=== PATIENT | male | born 1955 | race Asian ===

== ENCOUNTER 2024-06-15 06:28 | Day surgery (SDC) | payer OTHER, SELFPAY ==
[2024-06-15] VITALS (17 sets, daily range): BP systolic 114–170; BP diastolic 75–113; BMI 25.4
[2024-06-15] MEDS: NSS 500 IV (07:04)
--- NOTE | 2024-06-15 07:23 | PTCARENOTE ---
Irish respiratory tech used for preop care.
[2024-06-15 07:30] LABS: Glucose - Point of Care 162 mg/dl (70-99)
[2024-06-15] MEDS: NSS 1000 IV (10:14)
--- NOTE | 2024-06-15 11:47 | ITS.CL.PN ---
Cloth Sander - Procedure Note
Procedure
Procedure Note:
CARDIAC CATHETERIZATION REPORT
Date of Procedure: 06/15/2024
Referring: Dr. Emiliano Ritter MD
Indication: chest pain, ACS
PROCEDURE(S)
1. left heart catheterization
2. coronary angiography
ACCESS: 6F right radial artery (closure: radial band)
CATHETERS
1. 6F JL4
2. 6F JR4
HEMODYNAMIC DATA
LV 132/3 (EDP 12) mmHg
AO 137/81 (mean 107) mmHg
CORONARY ANGIOGRAPHY
Dominance: right
LM: large vessel with a 70-80% distal stenosis.
LAD: large vessel giving rise to a large D1, moderate caliber D2, and multiple septal perforators. There is an 80-90% stenosis just after the takeoff of D1. The proximal aspect of D1 contains a 70% stenosis. There is otherwise mild disease.
LCx: large vessel giving rise to a large branching OM1 and small LPL branch. There is a 80 to 90% stenosis in the proximal circumflex just before the takeoff of OM1.
RCA: Large vessel giving rise to a large RPDA, large RPL1, and small RPL2. The proximal RCA contains a log segment of calcified moderate to severe disease up to 80-90%. There are moderate stenoses in the distal RCA. The RPDA and RPL are relatively
disease-free.
RADIATION: dose 204.3 mGy; DAP 12.7 Gy*cm2; fluoroscopy time 4.6 min
CONCLUSIONS
1. severe multivessel coronary artery disease as described
2. sormal LV filling pressure and no significant gradient on pullback
RECOMMENDATIONS
1. expectant management after cardiac catheterization via right radial approach
2. referral for coronary artery bypass grafting given multivessel disease including distal left main disease w/ high syntax score, diabetes, and relatively young age
3. continue ASA, increase statin to high intensity
4. cardiac rehab after revascularization
5. patient instructed to have a low threshold to present to the ED if any further worsening of chest pain symptoms
Copy to: Dr. Emiliano Ritter MD (administrative volunteer); Dr. Girish Alberts MD (PCP)
Signed: Aravind Garland MD, PhD
== END 2024-06-15 12:55 | disposition home or self-care (01) ==
LOC: CATH 06:28
PROVIDERS: ATTENDING PHYSICIAN Student in an Organized Health Care Education/Training Program; FAMILY PHYSICIAN Internal Medicine; OTHER PHYSICIAN Internal Medicine Cardiovascular Disease
DX: I25.10 Atherosclerotic heart disease of native coronary artery without angina pectoris (principal); R07.9 Chest pain, unspecified; E11.9 Type 2 diabetes mellitus without complications; Z79.82 Long term (current) use of aspirin; Z79.84 Long term (current) use of oral hypoglycemic drugs
CPT/HCPCS: 82962; 93458; C1894; Q9967

== ENCOUNTER → 2024-06-25 07:26 | Outpatient (REF) | payer OTHER, SELFPAY | LOC: HWRCS 07:26 | PROVIDERS: ATTENDING PHYSICIAN Student in an Organized Health Care Education/Training Program | DX: I25.10 Atherosclerotic heart disease of native coronary artery without angina pectoris (principal) | CPT/HCPCS: 93306 ==

== ENCOUNTER → 2024-07-12 12:51 | Outpatient (REF) | payer OTHER, SELFPAY | LOC: HWRAD 12:51 | PROVIDERS: ATTENDING PHYSICIAN Thoracic Surgery (Cardiothoracic Vascular Surgery); FAMILY PHYSICIAN Internal Medicine | DX: I25.10 Atherosclerotic heart disease of native coronary artery without angina pectoris (principal); Z01.818 Encounter for other preprocedural examination | CPT/HCPCS: 71250 ==

== ENCOUNTER 2024-07-21 04:34 | Inpatient (IN) | payer OTHER, SELFPAY ==
[2024-07-07 12:05] VITALS: BMI 25.4
[2024-07-07 12:43] LABS: % Basophils 0.3 % (0-2); % Eosinophils 3.2 % (0-6); % Immature Granulocytes 0.3 % (0-0.5); % Monocytes 7.6 % (1.7-9.3); % Neutrophils 66.6 % (42.2-75.2); Absolute Eosinophils 0.2 10^3/uL (0-0.7); Absolute Lymphocytes 1.4 10^3/uL (1.2-3.4); Absolute Monocytes 0.5 10^3/uL (0.1-0.6); Absolute Neutrophils 4.1 10^3/uL (1.4-6.5); Hematocrit 48.4 % (39.0-52.0); Mean Corp Hgb Conc. 33.1 g/dL (33.0-37.0); Mean Corpuscular Hgb 31.7 pg (27.0-31.0); Mean Platelet Volume 9.3 fL (7.4-10.4); Nucleated Red Blood Cells % 0 % (-); Platelet Count 173 10^3/uL (130-400); Red Blood Cell Count 5.04 10^6/uL (4.70-6.10); Red Cell Dist. Width 12.7 % (11.5-14.5); White Blood Cell Count 6.2 10^3/uL (4.8-10.8)
[2024-07-07 12:43] LABS: Urine Albumin Negative (Neg - Trace); Urine Bilirubin Negative (Negative); Urine Character Clear (Clear); Urine Color Yellow; Urine Glucose 3+ (Negative); Urine Ketone 1+ (Negative); Urine Leukocyte Negative (Negative); Urine Nitrite Negative (Negative); Urine Occult Blood Negative (Negative); Urine Specific Gravity 1.005 (<1.030); Urine Urobilinogen Negative (Neg - 1+)
[2024-07-07 12:57] LABS: INR 0.91; PT 12.7 Sec (11.4-14.6)
[2024-07-07 12:58] LABS: APTT 28.3 Sec (23.4-35.0)
[2024-07-07 13:35] LABS: ALT (SGPT) 28 U/L (0-50); AST (SGOT) 28 U/L (17-59); Albumin 4.7 g/dl (3.5-5.0); Alkaline Phosphatase 54 U/L (38-126); Blood Urea Nitrogen 14 mg/dl (9-20); Calcium 9.5 mg/dl (8.4-10.2); Carbon Dioxide 32 mmol/L (22-30); Chloride 99 mmol/L (98-107); Estimated Creatinine Clearance 76 ml/min; Glucose 102 mg/dl (70-99); Glycohemoglobin (HgbA1c) 7.7 % (4.0-5.6); Potassium 4.5 mmol/L (3.5-5.1); Sodium 139 mmol/L (135-145); Total Bilirubin 1.1 mg/dl (0.2-1.3); Total Protein 7.2 g/dl (6.3-8.2); eGFR > 60.00
--- NOTE | 2024-07-07 14:21 | CM ---
Met with and Mrs. Yo in [facility]. His spouse was the medical receptionist medical assistant. Prior to admission he resides with his spouse in a three story home with two steps to enter. He has a full flight of steps to get to bedroom/full bathroom. He has a powder room
on the first floor. Prior to admission he was independent with ambulation and adls. He does not have any DME in the home. He has a prescription plan and uses [facility]. His daughter,([id number]) from [place]. will be coming up to stay with him for a
week. His spouse works outside the home. The discharge plan is to return home with his spouse,daughter staying with him for a week and a home visit with the Transitional Care Nurse when medically stable.
We reviewed pre-op and post-op routines. We reviewed the shower instructions. He has the soap, written instructions and the Cardiothoracic Surgery Educational Booklet. We also reviewed restrictions including sternal precautions and driving
restrictions. We discussed a home visit by the Transitional Care Nurse. He is agreeable to a home visit. The plan is for CABG on Sunday, July 21, 2024.
[2024-07-21] VITALS (9 sets, daily range): BP systolic 88–143; BP diastolic 63–89; BMI 24.4
[2024-07-21] MEDS: BACTROBAN 2% OINTMENT 1 APPLIC NASAL ×2 (05:20→20:15)
[2024-07-21] MEDS: PROTONIX 40 MG PO (05:20)
[2024-07-21] MEDS: MAGNESIUM OXIDE 500 MG PO (05:20)
[2024-07-21] MEDS: LOPRESSOR 25 MG PO (05:20)
--- NOTE | 2024-07-21 05:30 | PTCARENOTE ---
pt admitted into CVICU room 2262. pt confirmed 2 showers at home. pt clipped and prepped for CVOR. pre-op meds given. pre-op education provided. all questions answered. environmental property assessor to CVOR.
dry charge process attendant Cindi, #[id number]
[2024-07-21 07:58] LABS: ACT+ - POC 101 Seconds (82-134)
[2024-07-21 08:01] LABS: Urine Albumin Negative (Neg - Trace); Urine Bilirubin Negative (Negative); Urine Character Clear (Clear); Urine Color Yellow; Urine Glucose 2+ (Negative); Urine Ketone Negative (Negative); Urine Leukocyte Negative (Negative); Urine Nitrite Negative (Negative); Urine Occult Blood 1+ (Negative); Urine Urobilinogen Negative (Neg - 1+)
[2024-07-21 08:18] LABS: Urine Squamous Cell 0-2 /LPF (Few)
[2024-07-21 08:19] LABS: Urine Bacteria Few (Negative); Urine White Cell 0-2 /HPF (0-5)
[2024-07-21 09:46] LABS: ACT+ - POC 669 Seconds (82-134)
[2024-07-21 09:48] LABS: B.E. - POC 0.6 mmol/L; Glucose - POC 166 mg/dl (70-99); HCO3 - POC 24 mmol/L (21-28); Hematocrit - POC 34 % PCV (42-52); Hemodilution- POC No; Hemoglobin Calculated - POC 11.4; Ionized Calcium - POC 1.14 mmol/L (1.15-1.33); PCO2 - POC 31 mmHg (35-48); PO2 - POC 475 mmHg (83-108); Potassium - POC 3.8 mmol/L (3.5-5.1); Sodium - POC 129 mmol/L (136-145); Specimen Type - POC Arterial; pH - POC 7.48 (7.35-7.45)
--- NOTE | 2024-07-21 10:08 | CM ---
Chart reviewed. Patient is in the OR today. Patient is independent of ADLS, lives with his in a 3 STH, 2 JOHN, 0 DME. works outside the house and their adult daughter is traveling in to stay with the patient for a week to help. Plan
is for the patient to return home with CT Transitional RN. CM to follow
[2024-07-21 10:36] LABS: ACT+ - POC 848 Seconds (82-134)
[2024-07-21 10:37] LABS: B.E. - POC 2.5 mmol/L; Glucose - POC 214 mg/dl (70-99); HCO3 - POC 27 mmol/L (21-28); Hematocrit - POC 37 % PCV (42-52); Hemodilution- POC Yes; Hemoglobin Calculated - POC 12.6; Ionized Calcium - POC 0.99 mmol/L (1.15-1.33); Lactate - POC 0.58 mmol/L (0.36-0.75); O2 Saturation %Calculated-POC 99.9 % (94-98); PCO2 - POC 42 mmHg (35-48); PO2 - POC 285 mmHg (83-108); Potassium - POC 4.6 mmol/L (3.5-5.1); Sodium - POC 137 mmol/L (136-145); Specimen Type - POC Arterial; pH - POC 7.42 (7.35-7.45)
[2024-07-21 11:08] LABS: B.E. - POC 1.6 mmol/L; Glucose - POC 218 mg/dl (70-99); HCO3 - POC 27 mmol/L (21-28); Hematocrit - POC 32 % PCV (42-52); Hemodilution- POC Yes; Ionized Calcium - POC 1.07 mmol/L (1.15-1.33); Lactate - POC 0.79 mmol/L (0.36-0.75); O2 Saturation %Calculated-POC 99.8 % (94-98); PCO2 - POC 47 mmHg (35-48); PO2 - POC 238 mmHg (83-108); Potassium - POC 3.9 mmol/L (3.5-5.1); Sodium - POC 140 mmol/L (136-145); Specimen Type - POC Arterial; pH - POC 7.37 (7.35-7.45)
[2024-07-21 11:19] LABS: ACT+ - POC 499 Seconds (82-134)
[2024-07-21 11:48] LABS: ACT+ - POC 754 Seconds (82-134)
[2024-07-21 12:21] LABS: Glucose - POC 183 mg/dl (70-99); HCO3 - POC 24 mmol/L (21-28); Hematocrit - POC 31 % PCV (42-52); Hemodilution- POC Yes; Hemoglobin Calculated - POC 10.6; O2 Saturation %Calculated-POC 99.9 % (94-98); PCO2 - POC 37 mmHg (35-48); PO2 - POC 338 mmHg (83-108); Potassium - POC 3.6 mmol/L (3.5-5.1); Sodium - POC 142 mmol/L (136-145); Specimen Type - POC Arterial; pH - POC 7.42 (7.35-7.45)
[2024-07-21 12:30] LABS: B.E. - POC -0.2 mmol/L; Glucose - POC 163 mg/dl (70-99); HCO3 - POC 24 mmol/L (21-28); Hematocrit - POC 31 % PCV (42-52); Hemodilution- POC Yes; Hemoglobin Calculated - POC 10.7; Ionized Calcium - POC 1.02 mmol/L (1.15-1.33); O2 Saturation %Calculated-POC 99.9 % (94-98); PCO2 - POC 37 mmHg (35-48); PO2 - POC 317 mmHg (83-108); Potassium - POC 3.8 mmol/L (3.5-5.1); Sodium - POC 143 mmol/L (136-145); Specimen Type - POC Arterial; pH - POC 7.42 (7.35-7.45)
[2024-07-21 12:32] LABS: ACT+ - POC 552 Seconds (82-134)
[2024-07-21] MEDS: ANCEF 10 IV ×2 (12:45→14:33)
[2024-07-21 12:55] LABS: ACT+ - POC 107 Seconds (82-134)
[2024-07-21 12:58] LABS: B.E. - POC 2.1 mmol/L; Glucose - POC 141 mg/dl (70-99); HCO3 - POC 25 mmol/L (21-28); Hematocrit - POC 31 % PCV (42-52); Hemodilution- POC Yes; Hemoglobin Calculated - POC 10.4; Ionized Calcium - POC 1.21 mmol/L (1.15-1.33); Lactate - POC 1.42 mmol/L (0.36-0.75); O2 Saturation %Calculated-POC 99.9 % (94-98); PCO2 - POC 34 mmHg (35-48); PO2 - POC 246 mmHg (83-108); Potassium - POC 3.2 mmol/L (3.5-5.1); Sodium - POC 143 mmol/L (136-145); Specimen Type - POC Arterial; pH - POC 7.48 (7.35-7.45)
--- NOTE | 2024-07-21 13:26 | W.CVOR.SURPR ---
CVOR Surgeon Immed Pre Op
-
I have examined this patient prior to performance of the scheduled procedure.
The patient's condition is unchanged from the time of the dictated/written History and
Physical and the patient is able to undergo the scheduled procedure.
--- NOTE | 2024-07-21 13:27 | W.IMMPOSTOP ---
Addendum entered and electronically signed by Troy Smith MD 07/21/24 14:21:
[id number]
Original Note:
Surgical Immed Post Op Note
-
CARDIAC SURGERY OPERATIVE NOTE:
Preoperative Dx:
MVCAD including distal LM disease
Postoperative Dx:
Same
Procedures:
1) Median sternotomy
2) Takedown of LORENE (narrow pedicle)
3) Endoscopic harvest of B/L GSV from B/L thighs
4) CABG x 4 (LORENE to LAD, GSV to D1, GSV to OM1, GSV to RPDA)
Surgeon:
Troy Smith M.D.
Assistants:
Susannah KuoA.-CElvi; event marketing assistant throughout
Susannah NamA.-C.; endoscopic harvest/prep of B/L LE GSV; closure of B/L LE GSV incisions; xrwubc-elio-waui sternotomy closure
Caleb Camejo P.A.-C.; assisted w/ prep of LLE GSV
Anesthesia:
Berta Morejon C.R.N.A. and Dominick Colin M.D.
Perfusion:
Mariely BuenrostroCElviPElvi; XC: 100min, CPB: 150min
Findings:
LORENE was a healthy conduit w/ very brisk blood flow; ELD 2.50mm
B/L thigh GSVs were healthy conduit w/ ELD 2.75-3.25mm; GSVs in B/L calf appear small and were not removed/utilized
LAD was visible on the epicardial surface at its apical segment. It's midpoint was identified under approximate 0.75cm of adipose and 1mm of myocardium. Healthy chi at this location; ELD 2.50mm
D1 was visible on the epicardial surface. Healthy chi at anastomosis; ELD 2.50mm
OM1 [upper branch] was visible on the epicardial surface. Healthy chi at anastomosis; ELD 2.00mm (anastomosis performed over 1mm shunt for technical ease)
RPDA was visible on the epicardial surface. Healthy chi at anastomosis; ELD 2.00mm
Excellent flow in all grafts on postoperative transit-time U/S flow probe assessment
Post-MIC w/ normal biventricular function w/ LVEF 55-60% w/o RWMA; no sig VHD
One of the aortic purse-string sutures broke; aortotomy reinforced w/ 2, 4-0 prolene pledgetted sutures w/ good hemastatic result
Implants:
CT x 4 (B/L pleural, inferior mediastinal, superior mediastinal)
Sternal wires x 10
Complications:
None
Transfusions:
None
Condition:
82 isoelectric sinus (0.6/0.3); 103/66; CVP 15; 100%
GTTS: levophed 3, insulin 1, precedex 0.5
Stable/guarded to CVICU
[2024-07-21 13:58] LABS: Glucose - Point of Care 127 mg/dl (70-99)
--- NOTE | 2024-07-21 14:00 | PTCARENOTE ---
received patient from cvor sedated and placed on vent by HORTICULTURE SUPERINTENDENT. Out with usual lines, CTx4 placed to -20 wall suction. CXR/EKG done bedside and labs drawn and sent. Out on levo, precedex and insulin per glycemic protocol. family here and updated at
bedside and now going home. will continue to monitor.
--- NOTE | 2024-07-21 14:13 | CON.INTV ---
Consultation
Consultation Request
Date/Time Consultation Requested: 07/21
Date/Time Consultation Performed: 07/21
Reason for Consultation: Critical care
Medical History
-
History of Present Illness:
History obtained from the chart as patient is currently intubated and sedated. 68-year-old male with history of hypertension, hyperlipidemia who is noted to have coronary disease, multivessel disease. Patient also with a history of chronic kidney
disease, diabetes. He is status post CAB x 4 07/21/2024 without complication. Intermittent Cardene requirement noted. Presently on volume-cycled ventilation, FiO2 40%. We are asked to help from critical care standpoint
Patient presented in May with 3-4 history of gradual worsening chest discomfort and shortness of breath.
.
PMH: Hypertension, hyperlipidemia, type 2 diabetes, complicated by diabetic retinopathy, GERD, colon polyps, chronic kidney disease. History of left knee surgery 1998
Past Medical History
Past Medical History: None (See above)
Past Surgical History: None (See above)
Social History
Tobacco: Non-smoker
Alcohol: None
Drug: None
Personal:
Living: With Family
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
Family History
Family History: Other (Father at age 100, mother at age 97. Brother at 74, sister at 63 from COVID. 1 son, 1 daughter healthy)
Allergies / Home Medications
Allergies
Allergy/AdvReac Type Severity Reaction Status Date / Time
Penicillins Allergy Unknown Unknown Verified 07/05/24 15:28
Home Medications
�Medication �Instructions �Recorded �Confirmed �Last Taken �Type
ascorbic acid (vitamin C) 1,000 mg 1,000 mg PO DAILY 06/15/24 07/21/24 07/14/24 History
tablet,extended release (Vitamin C
ER)
aspirin 81 mg tablet 81 mg PO DAILY 06/15/24 07/21/24 07/14/24 08:00 History
atorvastatin 80 mg tablet 80 mg PO QPM #90 tabs 06/15/24 07/21/24 07/14/24 18:00 Rx
empagliflozin 25 mg tablet 25 mg PO DAILY 06/15/24 07/21/24 07/17/24 History
(Jardiance)
glipizide 5 mg-metformin 500 mg 2 tab PO BID 06/15/24 07/21/24 07/19/24 08:00 History
tablet
lisinopril 10 mg tablet 10 mg PO DAILY 06/15/24 07/21/24 07/19/24 History
multivit,Ca,min-iron 8 mg-folic 1 tab PO DAILY 06/15/24 07/21/24 07/14/24 History
acid 200 mcg-lycopene 600 mcg
tablet (Centrum Men)
nitroglycerin 0.4 mg sublingual 0.4 mg sublingual [id number] PRN 06/15/24 07/21/24 Unknown Rx
tablet chest pain #25 tabs
omega-3 fatty acids 1,000 mg PO DAILY 06/15/24 07/21/24 07/14/24 History
omeprazole 40 mg capsule,delayed 40 mg PO DAILY 06/15/24 07/21/24 07/14/24 History
release
vitamin E 1,000 unit tablet 1 tab PO DAILY 06/15/24 07/21/24 07/14/24 History
Review of Systems
-
Unable to Obtain full review of systems at this time due to: Patient Intubation
Vitals / Labs / Diagnostic Testing
Vital Signs
Temp Pulse Resp BP Pulse Ox
97.4 F 82 14 143/86 99
07/21/24 14:00 07/21/24 14:00 07/21/24 14:00 07/21/24 05:20 07/21/24 14:00
Diagnostic Testing:
Physical Exam
-
HEENT: Normocephalic and Other (Right IJ, left upper extremity A-line, chest tube)
Cardiovascular: S1/S2, Regular Rhythm, Murmur (n) and Rub (n)
Respiratory: Wheeze (n), Rales (n), Rhonchi (n) and Non-Labored Respirations
GI: Soft, Non Distended and Non Tender
Neurology: Other (Sedated, turns head)
Skin: Good Color and Other (No rash, no edema, lower extremity bandage)
General: Comfortable
Assessment
-
68-year-old male with history of multivessel coronary disease, diabetes, hypertension, hyperlipidemia, status post coronary bypass surgery, 07/21/2024
S/p CAB x4
Multivessel disease, left main disease
Postoperative anemia
LAFB
Chronic kidney disease
Hypertension/hyperlipidemia
Diabetes
GERD
Plan/recommendations
Patient remains critically ill but stable. Was on Precedex, insulin, norepinephrine. Intermittently requiring Cardene
currently on volume-cycled ventilation, FiO2 40%, starting to wake up, turning head
Chest exam is clear
Chest x-ray unremarkable
EKG unremarkable, LAFB
MIC with normal biventricular function
Moving forward
Continue with management per CT surgery
Anticipate extubation later today
Reviewed CT chest from 07/12/2024. Few scattered calcified granulomas noted
Noncalcified plaque noted in coronary arteries
Follow blood sugars
Follow hemoglobin
We will follow with you
TCCT 31 min
[2024-07-21 14:16] LABS: Hematocrit 31.4 % (39.0-52.0); Hemoglobin 10.9 g/dL (13.0-18.0); Platelet Count 110 10^3/uL (130-400)
[2024-07-21 14:19] LABS: B.E. 0.6 mmol/L; HCO3 24.3 mmol/L (21-28); Ionized Calcium 1.15 mMOL/L (1.15-1.33); O2 Saturation % 97.9 % (94-98); PCO2 35 mmHg (35-48); PO2 146 mmHg (83-108); Potassium 3.4 mMOL/L (3.5-5.1); Sodium 139 mMOL/L (136-145); pH 7.45 (7.35-7.45)
[2024-07-21 14:25] LABS: INR 1.37; PT 17.4 Sec (11.4-14.6)
[2024-07-21 14:26] LABS: APTT 29.2 Sec (23.4-35.0)
[2024-07-21] MEDS: CALCIUM GLUCONATE 100 IV (14:30)
[2024-07-21] MEDS: NSS 500 IV (14:31)
[2024-07-21] MEDS: LR 250 ML IV (14:31)
[2024-07-21] MEDS: KCL 50 IV ×2 (14:33→15:33)
[2024-07-21] MEDS: NEURONTIN PO ×2 (14:33→14:47)
[2024-07-21] MEDS: NOVOLOG FLEXPEN SC ×2 (14:38→15:07)
[2024-07-21] MEDS: TYLENOL PO (14:39)
[2024-07-21 14:41] LABS: Blood Urea Nitrogen 15 mg/dl (9-20); Estimated Creatinine Clearance 101 ml/min; Glucose 118 mg/dl (70-99); Magnesium 2.8 mg/dl (1.6-2.3)
[2024-07-21] MEDS: PACERONE PO (14:47)
[2024-07-21] MEDS: DILAUDID 0.5 MG IV (15:04)
[2024-07-21 15:18] LABS: Glucose - Point of Care 109 mg/dl (70-99)
[2024-07-21 16:22] LABS: Glucose - Point of Care 108 mg/dl (70-99)
[2024-07-21] MEDS: DILAUDID 0.25 MG IV (16:49)
--- NOTE | 2024-07-21 18:10 | PTCARENOTE ---
placed on CPAP wean.
[2024-07-21 18:51] LABS: HCO3 24.3 mmol/L (21-28); Ionized Calcium 1.26 mMOL/L (1.15-1.33); O2 Saturation % 97.7 % (94-98); PCO2 42 mmHg (35-48); PO2 189 mmHg (83-108); Potassium 4.4 mMOL/L (3.5-5.1); pH 7.37 (7.35-7.45)
[2024-07-21 18:56] LABS: Hematocrit 34.2 % (39.0-52.0); Hemoglobin 12.2 g/dL (13.0-18.0); Platelet Count 153 10^3/uL (130-400)
--- NOTE | 2024-07-21 18:59 | PTCARENOTE ---
extubated to 6L nc with field cashier. and daughter at bedside,. tolerated.
[2024-07-21] MEDS: LIPITOR PO (19:00)
--- NOTE | 2024-07-21 19:30 | PTCARENOTE ---
assumed care of pt from previous RN. pt oriented x4, drowsy s/p CABG, awakens to verbal stimuli. R IJ cordis w/ SLIC. L radial a-line. all lines leveled, zeroed, flushed. SR on tele-monitor. pericardial friction rub on auscultation. CT x4 (R & L
pleural, mediastinal x2) to -20cm to wall suction, draining sanguineous drainage. no air leaks noted. POX 96-99% on 6 L NC. abd s/n, hypoactive BS. ewing catheter draining clear, yellow urine. all surgical sites stable, CDI. PIV intact. call bah
within reach, pt demonstrated appropriate use. see worklist for complete nursing assessment, interventions, VS, and I&Os.
[2024-07-21] MEDS: SENOKOT-S PO (20:15)
[2024-07-21] MEDS: LOW STRENGTH ASPIRIN 81 MG PO (20:15)
[2024-07-21 20:19] LABS: Glucose - Point of Care 121 mg/dl (70-99)
[2024-07-21 20:19] LABS: Glucose - Point of Care 81 mg/dl (70-99)
[2024-07-21 20:24] LABS: Glucose - Point of Care 120 mg/dl (70-99)
[2024-07-21] MEDS: ALBUMIN 5% 250 IV (20:45)
[2024-07-21] MEDS: ANCEF 5 IV (21:59)
[2024-07-21] MEDS: PACERONE 200 MG PO (22:00)
[2024-07-21 22:06] LABS: Glucose - Point of Care 96 mg/dl (70-99)
[2024-07-21] MEDS: NEURONTIN 100 MG PO (23:10)
[2024-07-21] MEDS: TYLENOL 1000 MG PO (23:10)
[2024-07-21 23:59] LABS: Glucose - Point of Care 114 mg/dl (70-99)
[2024-07-22] VITALS (25 sets, daily range): BP systolic 83–129; BP diastolic 50–68; PULSE 84; O2SAT 97–98; BMI 24.9
--- NOTE | 2024-07-22 | PTCARENOTE ---
assessment remains unchanged. VSS. no c/o pain at this time. CT drainage WNL. U/O >0.5ml/kg/h.
[2024-07-22 02:06] LABS: Glucose - Point of Care 96 mg/dl (70-99)
[2024-07-22 03:50] LABS: Platelet Count 120 10^3/uL (130-400)
[2024-07-22 03:51] LABS: Hematocrit 29.9 % (39.0-52.0); Hemoglobin 10.3 g/dL (13.0-18.0); Mean Corp Hgb Conc. 34.4 g/dL (33.0-37.0); Mean Corpuscular Volume 92.9 fL (80.0-94.0); Mean Platelet Volume 9.4 fL (7.4-10.4); Red Blood Cell Count 3.22 10^6/uL (4.70-6.10); Red Cell Dist. Width 12.6 % (11.5-14.5); White Blood Cell Count 11.3 10^3/uL (4.8-10.8)
--- NOTE | 2024-07-22 04:00 | PTCARENOTE ---
no acute changes. VSS. AM labs collected and sent.
[2024-07-22 04:07] LABS: Glucose - Point of Care 94 mg/dl (70-99)
[2024-07-22 04:18] LABS: Blood Urea Nitrogen 16 mg/dl (9-20); Calcium 7.9 mg/dl (8.4-10.2); Carbon Dioxide 26 mmol/L (22-30); Chloride 107 mmol/L (98-107); Estimated Creatinine Clearance 101 ml/min; Glucose 104 mg/dl (70-99); Magnesium 2.5 mg/dl (1.6-2.3); Potassium 4.1 mmol/L (3.5-5.1); Sodium 139 mmol/L (135-145); eGFR > 60.00
[2024-07-22] MEDS: FLEXERIL 5 MG PO (05:13)
[2024-07-22] MEDS: TYLENOL 1000 MG PO ×3 (05:13→21:41)
[2024-07-22] MEDS: ANCEF 5 IV ×2 (05:13→13:05)
[2024-07-22 06:32] LABS: Glucose - Point of Care 106 mg/dl (70-99)
--- NOTE | 2024-07-22 07:12 | W.PN.CD ---
Today's Communication / Plan
-
Consider colchicine/aspirin taper if pericarditis becomes clinically meaningful.
Routine post operative management.
Hold antihypertensives at this time.
Not ready for diuretics.
Encourage incentive spirometry.
Ambulate when appropriate
Pain/chest tube management per CTS.
Impression / Plan
-
Impression/Plan: 68 y/o male with HTN, HLD, NIDDM and multivessel CAD admitted for elective CABG.
#CAD
-Chronic, progressive.
-S/P 4V CABG (LEZAMA to LAD, SVG to D1, SVG to OM, SVG to RPDA) with Dr. Smith, 07/21/2024.
-Routine post operative care.
-Encourage incentive spirometry.
-Ambulate when appropriate.
-Continue amiodarone.
-Not ready for diuretics.
-Pain/chest tube management per CTS.
#Post operative pericarditis
-Acute.
-Diffuse ST elevation on EKG. Pericardial rub on exam. No obvious symptoms.
-Consider colchicine 0.6 mg BID x 3 months and high dose aspirin taper if pericarditis becomes clinically meaningful.
#HTN
-Chronic, stable.
-Hold anti-hypertensive medications at this time.
#HLD
-Chronic, stable.
-Continue atorvastatin 80 mg daily.
-Goal LDL < 55.
#NIDDM
-Chronic, stable.
-Management per primary team.
Subjective/Interval History:
4V CABG yesterday.
Extubated to 6LNC yesterday.
Febrile to 38.1 yesterday, afebrile since.
Weight up 1.4 kg from yesterday.
Mild hypotension this morning (83/60 mmHg).
EKG shows diffuse ST elevation. Limited chest pain.
DATA:
Cardiac Catheterization, 06/15/2025:
CORONARY ANGIOGRAPHY
Dominance: right
LM: large vessel with a 70-80% distal stenosis.
LAD: large vessel giving rise to a large D1, moderate caliber D2, and multiple septal perforators. There is an 80-90% stenosis just after the takeoff of D1. The proximal aspect of D1 contains a 70% stenosis. There is otherwise mild disease.
LCx: large vessel giving rise to a large branching OM1 and small LPL branch. There is a 80 to 90% stenosis in the proximal circumflex just before the takeoff of OM1.
RCA: Large vessel giving rise to a large RPDA, large RPL1, and small RPL2. The proximal RCA contains a log segment of calcified moderate to severe disease up to 80-90%. There are moderate stenoses in the distal RCA. The RPDA and RPL are relatively
disease-free.
Transthoracic Echocardiogram, 06/25/2024:
CONCLUSIONS
Normal left ventricular size and systolic function.
LV ejection fraction is 55-60% .
Mild concentric left ventricular hypertrophy.
No significant valvular disease.
No prior study available for comparison.
Intraprocedural MIC, 07/21/2024:
CONCLUSIONS
Normal left ventricular size and systolic function, no regional wall motion
abnormalities seen. Stage I diastolic dysfunction.
Normal right ventricular size and function.
The aorta has atheroma less than 5 mm and minimal calcifications.
Trace MR. Trace TR.
POST OPERATIVE FINDINGS
Status post CABG x 4, the left ventricle is vigorously magdiel, no regional
wall motion abnormalities seen. EF 60 to 65%.
Normal right ventricular size and function.
Trace MR. Trace TR. No aortic valve abnormalities.
Mild left pleural effusion.
Physical Exam
Vital Signs/Labs
Vital Signs
Temp Pulse Resp BP Pulse Ox
37.5 C 90 18 103/59 96
07/22/24 04:00 07/22/24 06:30 07/22/24 06:15 07/22/24 06:04 07/22/24 06:30
07/20/24 07/21/24 07/22/24
11:59 11:59 11:59
Actual Weight 66.5 kg 67.9 kg
07/22/24 03:28
07/22/24 03:28
PT 17.4 Sec (11.4-14.6) H 07/21/24 13:55
INR 1.37 07/21/24 13:55
APTT 29.2 Sec (23.4-35.0) 07/21/24 13:55
Magnesium 2.5 mg/dl (1.6-2.3) H 07/22/24 03:28
Physical Exam
Constitutional: No acute distress and Comfortable
EENT: Anicteric and Moist mucous membranes
Cardiovascular: Rhythm & rate is regular, S1S2 is normal and Rub present
Respiratory: Respiratory effort normal and Other (Decreased throughout.)
GI: Soft, Distention absent, Flat, Non tender and Normal bowel sounds
Neuro/Psych: AO x 3
Data Reviewed
-
Date of Service: July 22, 2024
Medical Decision Making: Reviewed Test Results, Independent Historian Assessment and Test Interpretation
EKG: Tracing Personally Visualized and interpreted and Report Reviewed by me
Echo: Report Reviewed by me
X-Ray/CT/US/MRI/NUC/PET: Image Personally Visualized and interpreted and Report Reviewed by me
Medical Tests (PFT, Pathology etc): Report Reviewed by me
Labs: Labs Reviewed by me
Old Records: Reviewed
--- NOTE | 2024-07-22 07:19 | W.PN.CT ---
Today's Communication / Plan
-
-pod #1
-no issues overnight
-drips: insulin
-CT output: 2 pleur 185/280; 2 meds 40/150 in 12/24 hrs
-Tm 100.5- encourage IS, chest PT
-deline
-d/c Vu
-continue insulin
-diurese
-current meds (ASA, Plavix, Lipitor, Lopressor, Amio, Protonix)
-encourage IS, OOB
Assessment / Plan
-
- mv-CAD - s/p CABG x 4 (LORENE to LAD, GSV to D1, GSV to OM1, GSV to RPDA) by Dr. Smith on 07/21/24, pod #1
- Post-MIC w/ normal biventricular function w/ LVEF 55-60% w/o RWMA; no sig VHD
- HTN/HLD
- DM II with retinopathy
- CKD, 1
- LAFB preop
- Gastritis/duodenitis
- GERD, colon polyps
- R shoulder pain
- L knee surgery 1998
- Acute postop blood loss anemia - stable
- Acute postop thrombocytopenia
- Acute postop atelectasis
- Acute postop hypovolemia with subsequent hypervolemia
- Suspected acute postop pericarditis
Discussed patient care with: Nursing and Care Team
Subjective
Procedure
- s/p CABG x 4 (LORENE to LAD, GSV to D1, GSV to OM1, GSV to RPDA) by Dr. Smith on 07/21/24
-
Date of Service: July 21, 2024
Objective Data
-
Lab Results
07/21/24 18:45
07/21/24 13:55
PT 17.4 Sec (11.4-14.6) H 07/21/24 13:55
INR 1.37 07/21/24 13:55
APTT 29.2 Sec (23.4-35.0) 07/21/24 13:55
Vital Signs
Vital Signs
Temp Pulse Resp BP Pulse Ox
99.8 F 96 12 112/72 100
07/21/24 22:00 07/21/24 22:00 07/21/24 22:00 07/21/24 22:00 07/21/24 22:[address]
CT Intake/Output/Weight
07/21/24 07/21/24 07/22/24
06:59 18:59 06:59
Intake Total 783.8 / 1114.2 330.4 / 1114.2
Output Total 980 / 1485 505 / 1485
Balance -196.2 / -370.8 -174.6 / -370.8
SaO2: 100
Physical Exam
-
General: Awake (follows commands, responds appropriately) and Oriented
Cardiovascular: Regular rate & rhythm, No Murmurs and Rub (very loud )
Respiratory: Decreased Breath Sounds
Sternum: Stable
Incision: Dry and Intact
Extremities: No Edema (DPs by Doppler b/l)
Abdomen: soft, nontender, nondistended, +decreased bowel sounds
Data Reviewed
-
Lab Results: Results Reviewed
Medications: Active Meds Reviewed
Chest X-Ray: Report Reviewed and Image Reviewed
ECG: Report Reviewed and Image Reviewed
--- NOTE | 2024-07-22 08:00 | PTCARENOTE ---
Assumed care of patient from slot shift supervisor RN. AAO x 3 sitting up in the chair. SR on monitor. Room air 97%, Using IS to 750. No cough currently. Chest tubes x 4 to - 20 cm suction. No air leak or crepitus noted. Abdomen soft and non tender.
Bowel sounds present. Due to void. Surgical sites well approximated. Pulses palpable. General anasarca appreciated. Plan for day discussed.
--- NOTE | 2024-07-22 08:06 | W.PN.INTV ---
Today's Communication / Plan
Recommendations
Incentive spirometry, pain control
Out of bed to chair
Remains on insulin drip
Airway clearance measures
Assessment
-
68-year-old male with history of multivessel coronary disease, diabetes, hypertension, hyperlipidemia, status post coronary bypass surgery, 07/21/2024
S/p CAB x4
Multivessel disease, left main disease
Postoperative anemia
LAFB
Chronic kidney disease
Hypertension/hyperlipidemia
Diabetes
GERD
Plan/recommendations
Patient appears comfortable
remains on insulin drip
Extubated without difficulty
Chest x-ray unremarkable. Chest exam clear, splinting on exam noted
EKG unremarkable, LAFB
MIC with normal biventricular function
Moving forward
Continue with management per CT surgery
Reviewed CT chest from 07/12/2024. Few scattered calcified granulomas noted
Noncalcified plaque noted in coronary arteries
Follow blood sugars. Remains on insulin drip. Diabetic ADJUNCT ART HISTORY INSTRUCTOR following
Follow hemoglobin
Pain control
Out of bed to chair, incentive spirometry
Will follow
Subjective Dataa
Subjective Data
Date of Service:
Date of Service: July 22, 2024
Subjective:
Patient examined earlier today, late entry. Patient appears to be comfortable. He is splinting with deep breathing.
Objective Data
Data Reviewed
Vital Signs / I&O / Oxygen:
Vital Signs
Temp Pulse Resp BP Pulse Ox
99.5 F 90 18 103/59 96
07/22/24 04:00 07/22/24 06:30 07/22/24 06:15 07/22/24 06:04 07/22/24 06:30
Intake and Output
07/21/24 07/22/24 07/23/24
06:59 06:59 06:59
Intake Total 1264.4 / 1264.4
Output Total 2280 / 2280
Balance -1015.6 / -1015.6
SaO2 96
Nasal Cannula flow liters per 2
minute
Physical Exam
General: Comfortable and Other (Right IJ, chest tube)
HEENT: Normocephalic and Anicteric
Cardiovascular: S1-S2, Regular Rhythm and Other (Right lower extremity bandage, left upper extremity dressing)
Respiratory: Clear, Wheeze (n), Crackles (n), Rhonchi (n) and Non-Labored Respirations
GI: Soft, Non Distended and Non Tender
Neurology: Awake, Alert and No Motor Deficits (Moves all extremities)
Skin: Good Color, Cyanosis (n) and Rash
Labs/Micro/Reports
Lab Data
07/22/24 03:28
07/22/24 03:28
Laboratory Results
07/21/24 07/21/24
13:55 18:45
PT 17.4 H
INR 1.37
APTT 29.2
pH 7.45 7.37
pCO2 35 42
pO2 146 H 189 H
HCO3 24.3 24.3
O2 Delivery Level
[2024-07-22] MEDS: NEURONTIN 100 MG PO ×3 (08:11→21:41)
[2024-07-22] MEDS: PLAVIX 75 MG PO (08:11)
[2024-07-22] MEDS: PROTONIX 40 MG PO (08:11)
[2024-07-22] MEDS: SENOKOT-S 1 TABLET PO ×2 (08:12→20:10)
[2024-07-22] MEDS: PACERONE 200 MG PO ×3 (08:12→21:41)
[2024-07-22] MEDS: NOVOLOG FLEXPEN SC ×2 (08:12→13:18)
[2024-07-22] MEDS: MAGNESIUM OXIDE 500 MG PO ×2 (08:12→20:10)
[2024-07-22] MEDS: LOW STRENGTH ASPIRIN 81 MG PO (08:12)
[2024-07-22] MEDS: LIDOCAINE 4% PATCH 1 PATCH TOPICAL (08:12)
[2024-07-22] MEDS: VITAMIN C 1000 MG PO (08:12)
[2024-07-22] MEDS: LOPRESSOR 12.5 MG PO ×2 (08:12→20:11)
[2024-07-22] MEDS: BACTROBAN 2% OINTMENT 1 APPLIC NASAL ×2 (08:13→20:10)
[2024-07-22 08:14] LABS: Glucose - Point of Care 100 mg/dl (70-99)
--- NOTE | 2024-07-22 08:31 | PN.DE.MGMTRT ---
Insulin Management
- -
07/22/2024 Diabetes management Consult
Patient admitted 07/21 to OR for CABG x 4. PMH CKD, HTN, HLD, diabetes, CAD, retinopathy, GERD. Prior to admission patient was taking glipizide/ metformin ( 5/500) 2 tabs BID and Jardiance 25 mg daily. A1C is 7.7, cr .6, eGFR > 60.
Patient is awake alert and oriented able to discuss diabetes care. at bedside and very supportive. He does have a working glucose monitor and supplies
POD 1 will continue glycemic protocol insulin infusion and assess tomorrow for readiness to transition off.
Discussed with nurse.
Will follow
Diabetes History
- -
Type of Diabetes: 2
Pre-Admission Diabetes Regimen
07/21/24 07/22/24
13:55 03:28
Creatinine 0.6 L 0.6 L
Lab Results
Hemoglobin A1c 7.7 % (4.0-5.6) H 07/07/24 12:16
Insulin Pump Settings
IP Diabetes Regimen
07/21/24 07/21/24 07/21/24
13:54 13:55 15:17
Glucose 118 H
POC Glucose 127 H 109 H
07/21/24 07/21/24 07/21/24
16:21 17:10 18:43
Glucose
POC Glucose 108 H 81 121 H
07/21/24 07/21/24 07/21/24
20:20 22:05 23:58
Glucose
POC Glucose 120 H 96 114 H
07/22/24 07/22/24 07/22/24
02:04 03:28 04:05
Glucose 104 H
POC Glucose 96 94
07/22/24 07/22/24
06:28 08:08
Glucose
POC Glucose 106 H 100 H
Patient Education
--- NOTE | 2024-07-22 08:50 | W.PN.ANS.POP ---
Anesthesia Post Operative
- Anesthesia Post Op Note
Vital Signs Stable-See Nursing Note: Yes
Airway Patent: Yes
Adequate Pain Control: Yes
Change in Mental Status: No
Current Postoperative Nausea & Vomiting: No
Anesthesia Complications: No
General Anesthetic Recall: No
Unplanned Admission: No
Post Op Hydration Adequate: Yes
- -
Pt awake and alert-resting comfortably with no anesthesia related c/o at time of post op visit..OOB to chair.
[2024-07-22 10:04] LABS: Glucose - Point of Care 119 mg/dl (70-99)
[2024-07-22] MEDS: LASIX 40 MG IV (10:04)
--- NOTE | 2024-07-22 11:29 | CM ---
Chart reviewed. Patient is independent of ADLS, lives with his in a 3 STH, 2 JOHN, 0 DME. Plan is for the patient to return home with CT Transitional RN. CM to follow
[2024-07-22 12:05] LABS: Glucose - Point of Care 108 mg/dl (70-99)
--- NOTE | 2024-07-22 13:01 | PTCARENOTE ---
Tolerating sitting up in the chair, Pain well controlled. VSS. Able to void in urinal w/o issue. Assessment otherwise unchanged from prior.
[2024-07-22] MEDS: NOVOLIN R INSULIN INFUSION 100 IV (13:05)
[2024-07-22] MEDS: NSS IV (13:18)
[2024-07-22] MEDS: LIPITOR 80 MG PO (16:16)
[2024-07-22 16:19] LABS: Glucose - Point of Care 202 mg/dl (70-99)
--- NOTE | 2024-07-22 16:44 | PTCARENOTE ---
Resting in bed, denies pain at present. Bilateral leg Johnny wraps removed. Voiding w/o issue. Assessment otherwise unchanged from prior.
[2024-07-22 17:09] LABS: Glucose - Point of Care 198 mg/dl (70-99)
[2024-07-22 17:56] LABS: Glucose - Point of Care 142 mg/dl (70-99)
[2024-07-22 18:47] LABS: Hepatitis C Antibody Negative (Negative)
[2024-07-22] MEDS: NOVOLOG FLEXPEN 4 UNITS SC (19:28)
[2024-07-22 19:34] LABS: Glucose - Point of Care 107 mg/dl (70-99)
[2024-07-22 20:09] LABS: Glucose - Point of Care 147 mg/dl (70-99)
--- NOTE | 2024-07-22 20:35 | PTCARENOTE ---
received pt from previous rn. VSS, Pt AAOx3, NSR per tele monitor HR 80-90s, +pulses, +rub, pox 96% on RA, lungs diminished, Chest tubes x 4 to - 20 cm suction. No air leak or crepitus noted. +bs, voids appropriately, all surgical sites intact,
RIJ cordis infusing KVO, PIV x1 infusing insulin per glycemic protocol. plan of care discussed and questions encouraged
[2024-07-22 21:45] LABS: Glucose - Point of Care 188 mg/dl (70-99)
[2024-07-22 23:01] LABS: Glucose - Point of Care 155 mg/dl (70-99)
--- NOTE | 2024-07-22 23:10 | PTCARENOTE ---
VSS, NSR per tele monitor HR 80s, assessment remains unchanged
[2024-07-23] VITALS (14 sets, daily range): BP systolic 94–138; BP diastolic 52–77; PULSE 80; O2SAT 98–99; BMI 24.4
[2024-07-23 01:01] LABS: Glucose - Point of Care 119 mg/dl (70-99)
[2024-07-23 02:04] LABS: Glucose - Point of Care 115 mg/dl (70-99)
[2024-07-23 03:06] LABS: Glucose - Point of Care 96 mg/dl (70-99)
--- NOTE | 2024-07-23 03:09 | PTCARENOTE ---
routine labs obtained, VSS, NSR per tele monitor HR 80s, assessment remains unchanged
[2024-07-23 03:18] LABS: Hematocrit 29.5 % (39.0-52.0); Hemoglobin 10.1 g/dL (13.0-18.0); Mean Corp Hgb Conc. 34.2 g/dL (33.0-37.0); Mean Corpuscular Hgb 32.5 pg (27.0-31.0); Mean Corpuscular Volume 94.9 fL (80.0-94.0); Mean Platelet Volume 9.5 fL (7.4-10.4); Platelet Count 123 10^3/uL (130-400); Red Blood Cell Count 3.11 10^6/uL (4.70-6.10); Red Cell Dist. Width 12.9 % (11.5-14.5); White Blood Cell Count 10.2 10^3/uL (4.8-10.8)
[2024-07-23 03:38] LABS: Blood Urea Nitrogen 17 mg/dl (9-20); Calcium 7.8 mg/dl (8.4-10.2); Carbon Dioxide 32 mmol/L (22-30); Chloride 102 mmol/L (98-107); Estimated Creatinine Clearance 87 ml/min; Glucose 95 mg/dl (70-99); Magnesium 2.5 mg/dl (1.6-2.3); Potassium 3.6 mmol/L (3.5-5.1); Sodium 137 mmol/L (135-145); eGFR > 60.00
--- NOTE | 2024-07-23 03:55 | W.PN.CT ---
Today's Communication / Plan
-
-pod #1
-no issues overnight
-CT output: 2 pleur 40/120; 2 meds 55/115 in 12/24 hrs
-Tm 99.3- encourage IS, chest PT
-consult endocrine, restart home DM meds
-current meds (ASA, Plavix, Lipitor, Lopressor, Amio, Protonix)
-encourage IS, OOB
-K and Ca repleted
Assessment / Plan
-
- mv-CAD - s/p CABG x 4 (LORENE to LAD, GSV to D1, GSV to OM1, GSV to RPDA) by Dr. Smith on 07/21/24, pod #2
- Post-MIC w/ normal biventricular function w/ LVEF 55-60% w/o RWMA; no sig VHD
- HTN/HLD
- DM II with retinopathy
- CKD, 1
- LAFB preop
- Gastritis/duodenitis
- GERD, colon polyps
- R shoulder pain
- L knee surgery 1998
- Acute postop blood loss anemia - stable
- Acute postop thrombocytopenia
- Acute postop atelectasis
- Acute postop hypovolemia with subsequent hypervolemia
- Suspected acute postop pericarditis
Subjective
Procedure
- s/p CABG x 4 (LORENE to LAD, GSV to D1, GSV to OM1, GSV to RPDA) by Dr. Smith on 07/21/24
-
Date of Service: July 23, 2024
Objective Data
-
Lab Results
07/23/24 03:05
07/23/24 03:05
PT 17.4 Sec (11.4-14.6) H 07/21/24 13:55
INR 1.37 07/21/24 13:55
APTT 29.2 Sec (23.4-35.0) 07/21/24 13:55
Vital Signs
Vital Signs
Temp Pulse Resp BP Pulse Ox
98.8 F 86 16 106/62 96
07/23/24 03:08 07/23/24 03:00 07/23/24 03:08 07/23/24 03:00 07/23/24 03:08
CT Intake/Output/Weight
07/22/24 07/22/24 07/23/24
06:59 18:59 06:59
Intake Total 480.6 / 1264.4 418 / 447.5 29.5 / 447.5
Output Total 1300 / 2280 1640 / 2935 1295 / 2935
Balance -819.4 / -1015.6 -1222 / -2487.5 -1265.5 / -2487.5
SaO2: 96
Physical Exam
-
General: AOx3
Cardiovascular: Regular rate & rhythm
Respiratory: Decreased Breath Sounds
Sternum: Stable
Incision: Dressing Intact
Extremities: No Edema
[2024-07-23 04:13] LABS: Glucose - Point of Care 95 mg/dl (70-99)
[2024-07-23] MEDS: TYLENOL 1000 MG PO ×2 (06:17→21:48)
[2024-07-23] MEDS: KCL 40 MEQ PO (06:17)
[2024-07-23] MEDS: CALCIUM GLUCONATE 100 IV (06:18)
[2024-07-23 06:23] LABS: Glucose - Point of Care 107 mg/dl (70-99)
--- NOTE | 2024-07-23 07:15 | PTCARENOTE ---
Assumed care of patient from shift supervisor RN. AAo x 3, assist x 1 oob to chair, gait steady. SR on monitor. Rub noted on exam. Room air 95%, Uses IS with encouragement. Chest tubes x 4 t0 -20 cm suction. No air leak or crepitus noted. Abdomen
soft and non tender, appetite good. Voiding w/o issue. Pulses palpable. Plan for day discussed.
--- NOTE | 2024-07-23 07:23 | PN.DE.MGMTRT ---
Insulin Management
- -
07/23/2024: Diabetes management F/U:
Patient admitted 07/21 to OR for CABG x 4. PMH CKD, HTN, HLD, diabetes, CAD, retinopathy, GERD. Prior to admission patient was taking glipizide/ metformin ( 5/500) 2 tabs BID and Jardiance 25 mg daily. States he has a working glucose monitor and
supplies. A1C is 7.7, cr .6, eGFR > 60.
Patient is awake alert and oriented, sitting up in chair, offers no complaints, able to discuss diabetes care. .
POD #2, Remains on glycemic protocol, glucose range 95 to 119, requiring 1.1 to 3.5 units of insulin/hr.
Will continue glycemic protocol insulin infusion and reassess later today for readiness to transition off.
Will add Farxiga 10mg daily, 1st dose now. 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
Will give Lantus 10 units x1, (preferably dinner time) wait 1hr then turn drip off after.
Resume his OP regimen: Glipizide 5mg BID and Metformin 1000mg BID. Will cont to follow
Dsicussed with Pt's Nurse and [facility] team.
Diabetes History
- -
Type of Diabetes: 2 requiring insulin
Pre-Admission Diabetes Regimen
07/23/24
03:05
Creatinine 0.7
Lab Results
Hemoglobin A1c 7.7 % (4.0-5.6) H 07/07/24 12:16
Insulin Pump Settings
IP Diabetes Regimen
07/22/24 07/22/24 07/22/24
08:08 10:03 12:03
Glucose
POC Glucose 100 H 119 H 108 H
07/22/24 07/22/24 07/22/24
16:15 17:08 17:55
Glucose
POC Glucose 202 H 198 H 142 H
07/22/24 07/22/24 07/22/24
19:27 20:08 21:43
Glucose
POC Glucose 107 H 147 H 188 H
07/22/24 07/23/24 07/23/24
22:59 00:59 02:03
Glucose
POC Glucose 155 H 119 H 115 H
07/23/24 07/23/24 07/23/24
03:05 04:12 06:22
Glucose 95
POC Glucose 96 95 107 H
Patient Education
--- NOTE | 2024-07-23 07:49 | W.PN.INTV ---
Today's Communication / Plan
Recommendations
Pain control, incentive spirometry
Insulin drip continues
Chest tube management per CT surgery
Patient currently on room air
Once transferred to telemetry, we will sign off. Please call with questions
Assessment
-
68-year-old male with history of multivessel coronary disease, diabetes, hypertension, hyperlipidemia, status post coronary bypass surgery, 07/21/2024
S/p CAB x4
Multivessel disease, left main disease
Postoperative anemia
LAFB
Chronic kidney disease
Hypertension/hyperlipidemia
Diabetes
GERD
Plan/recommendations
Patient appears comfortable
remains on insulin drip, plan to discontinue later today
Chest x-ray unremarkable. Chest exam clear, splinting on exam noted
EKG unremarkable, LAFB
MIC with normal biventricular function
Moving forward
Continue with management per CT surgery
Chest tube management per CT surgery
Reviewed CT chest from 07/12/2024. Few scattered calcified granulomas noted
Noncalcified plaque noted in coronary arteries
Follow blood sugars. Remains on insulin drip. 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
Follow hemoglobin
Pain control
Out of bed to chair, incentive spirometry
Once transferred to telemetry, we will sign off. Please call with questions
Subjective Dataa
Subjective Data
Date of Service:
Date of Service: July 23, 2024
Subjective:
Patient examined earlier today. Late entry. Patient is feeling well. at the bedside to act as an spanish interpreter/translator. Mild splinting noted, denies shortness of breath, significant cough, nausea, abdominal pain
Objective Data
Data Reviewed
Vital Signs / I&O / Oxygen:
Vital Signs
Temp Pulse Resp BP Pulse Ox
99.1 F 95 16 117/66 95
07/23/24 07:14 07/23/24 07:14 07/23/24 07:14 07/23/24 04:00 07/23/24 07:14
Intake and Output
07/22/24 07/23/24 07/24/24
06:59 06:59 06:59
Intake Total 1264.4 / 1264.4 458.6 / 458.6 371.1 / 371.1
Output Total 2280 / 2280 2940 / 2940
Balance -1015.6 / -1015.6 -2481.4 / -2481.4 351.1 / 351.1
SaO2 95
Nasal Cannula flow liters per 2
minute
Physical Exam
General: Comfortable
HEENT: Normocephalic and Anicteric
Cardiovascular: S1-S2, Regular Rhythm and Other (Right lower extremity bandage, left upper extremity dressing)
Respiratory: Clear, Wheeze (n), Crackles (n), Rhonchi (n) and Non-Labored Respirations
GI: Soft, Non Distended and Non Tender
Neurology: Awake, Alert and No Motor Deficits (Moves all extremities)
Skin: Good Color, Cyanosis (n) and Rash
Labs/Micro/Reports
Lab Data
07/23/24 03:05
07/23/24 03:05
[2024-07-23 08:20] LABS: Glucose - Point of Care 274 mg/dl (70-99)
[2024-07-23] MEDS: PLAVIX 75 MG PO (08:20)
[2024-07-23] MEDS: VITAMIN C 1000 MG PO (08:20)
[2024-07-23] MEDS: PROTONIX 40 MG PO (08:20)
[2024-07-23] MEDS: NEURONTIN 100 MG PO ×3 (08:20→21:48)
[2024-07-23] MEDS: FARXIGA 10 MG PO (08:20)
[2024-07-23] MEDS: MAGNESIUM OXIDE 500 MG PO ×2 (08:20→19:57)
[2024-07-23] MEDS: NOVOLOG FLEXPEN 4 UNITS SC ×2 (08:21→14:38)
[2024-07-23] MEDS: LOPRESSOR 12.5 MG PO ×2 (08:21→19:57)
[2024-07-23] MEDS: BACTROBAN 2% OINTMENT 1 APPLIC NASAL ×2 (08:21→19:57)
[2024-07-23] MEDS: SENOKOT-S 1 TABLET PO (08:21)
[2024-07-23] MEDS: PACERONE 200 MG PO ×2 (08:21→15:47)
[2024-07-23] MEDS: LOW STRENGTH ASPIRIN 81 MG PO (08:21)
[2024-07-23] MEDS: LIDOCAINE 4% PATCH TOPICAL (08:22)
[2024-07-23 09:31] LABS: Glucose - Point of Care 339 mg/dl (70-99)
[2024-07-23 10:47] LABS: Glucose - Point of Care 157 mg/dl (70-99)
--- NOTE | 2024-07-23 10:52 | PTCARENOTE ---
Chest tubes x 4 removed per MD order. Pt tolerated w/o issue. RT IJ cordis removed after. Manual pressure applied x 5 minutes, hemostasis achieved. Resting in bed after.
--- NOTE | 2024-07-23 11:14 | CM ---
Chart reviewed. Patient was lying in bed, at bedside. Patient is independent of ADLS, lives with his in a [address], 2 JOHN, 0 DME. Plan is for the patient to return home with CT Transitional RN. CM to follow
--- NOTE | 2024-07-23 11:27 | W.PN.CD ---
Today's Communication / Plan
-
Repeat EKG this morning.
Otherwise routine post operative management.
Incentive spirometry.
Ambulation.
Impression / Plan
-
Impression/Plan: 68 y/o male with HTN, HLD, NIDDM and multivessel CAD admitted for elective CABG.
#CAD
-Chronic, progressive.
-S/P 4V CABG (LEZAMA to LAD, SVG to D1, SVG to OM, SVG to RPDA) with Dr. Smith, 07/21/2024.
-Routine post operative care.
-Encourage incentive spirometry.
-Ambulate when appropriate.
-Continue amiodarone.
#Post operative pericarditis
-Acute.
-Diffuse ST elevation on EKG. Pericardial rub on exam, improved from yesterday. No obvious symptoms.
-Recheck EKG this morning.
-Consider colchicine 0.6 mg BID x 3 months and high dose aspirin taper if pericarditis becomes clinically meaningful.
#HTN
-Chronic, stable.
-Hold anti-hypertensive medications at this time.
#HLD
-Chronic, stable.
-Continue atorvastatin 80 mg daily.
-Goal LDL < 55.
#NIDDM
-Chronic, stable.
-Management per primary team.
Subjective/Interval History:
Chest tubes removed.
Diabetic mangement on board. Dapagliflozin and insulin glargine starting.
Furosemide 40 mg IV x1 given yesterday.
Weight down 1.5 kg.
Feels well.
DATA:
Cardiac Catheterization, 06/15/2025:
CORONARY ANGIOGRAPHY
Dominance: right
LM: large vessel with a 70-80% distal stenosis.
LAD: large vessel giving rise to a large D1, moderate caliber D2, and multiple septal perforators. There is an 80-90% stenosis just after the takeoff of D1. The proximal aspect of D1 contains a 70% stenosis. There is otherwise mild disease.
LCx: large vessel giving rise to a large branching OM1 and small LPL branch. There is a 80 to 90% stenosis in the proximal circumflex just before the takeoff of OM1.
RCA: Large vessel giving rise to a large RPDA, large RPL1, and small RPL2. The proximal RCA contains a log segment of calcified moderate to severe disease up to 80-90%. There are moderate stenoses in the distal RCA. The RPDA and RPL are relatively
disease-free.
Transthoracic Echocardiogram, 06/25/2024:
CONCLUSIONS
Normal left ventricular size and systolic function.
LV ejection fraction is 55-60% .
Mild concentric left ventricular hypertrophy.
No significant valvular disease.
No prior study available for comparison.
Intraprocedural MIC, 07/21/2024:
CONCLUSIONS
Normal left ventricular size and systolic function, no regional wall motion
abnormalities seen. Stage I diastolic dysfunction.
Normal right ventricular size and function.
The aorta has atheroma less than 5 mm and minimal calcifications.
Trace MR. Trace TR.
POST OPERATIVE FINDINGS
Status post CABG x 4, the left ventricle is vigorously magdiel, no regional
wall motion abnormalities seen. EF 60 to 65%.
Normal right ventricular size and function.
Trace MR. Trace TR. No aortic valve abnormalities.
Mild left pleural effusion.
Physical Exam
Vital Signs/Labs
Vital Signs
Temp Pulse Resp BP Pulse Ox
37.3 C 91 16 131/61 99
07/23/24 07:14 07/23/24 08:17 07/23/24 07:14 07/23/24 08:21 07/23/24 10:40
07/21/24 07/22/24 07/23/24
11:59 11:59 11:59
Actual Weight 66.5 kg 67.9 kg 66.4 kg
07/23/24 03:05
07/23/24 03:05
PT 17.4 Sec (11.4-14.6) H 07/21/24 13:55
INR 1.37 07/21/24 13:55
APTT 29.2 Sec (23.4-35.0) 07/21/24 13:55
Magnesium 2.5 mg/dl (1.6-2.3) H 07/23/24 03:05
Physical Exam
Constitutional: No acute distress and Comfortable
EENT: Anicteric and Moist mucous membranes
Cardiovascular: Rhythm & rate is regular, Pedal edema is absent, JVD pressure is normal, S1S2 is normal and Rub present
Respiratory: Respiratory effort normal, Lungs clear to auscul., Wheeze Absent, Crackles Absent and Rhonchi Absent
GI: Soft, Distention absent, Flat, Non tender and Normal bowel sounds
Neuro/Psych: AO x 3
Data Reviewed
-
Date of Service: July 23, 2024
Medical Decision Making: Reviewed Test Results, Independent Historian Assessment, Test Interpretation and Review of Case with other Provider
EKG: Tracing Personally Visualized and interpreted and Report Reviewed by me
X-Ray/CT/US/MRI/NUC/PET: Image Personally Visualized and interpreted and Report Reviewed by me
Labs: Labs Reviewed by me
Old Records: Reviewed
[2024-07-23 13:01] LABS: Glucose - Point of Care 140 mg/dl (70-99)
[2024-07-23] MEDS: NOVOLOG FLEXPEN SC ×2 (13:02→15:48)
[2024-07-23] MEDS: NSS IV (13:03)
[2024-07-23 14:36] LABS: Glucose - Point of Care 108 mg/dl (70-99)
[2024-07-23] MEDS: TYLENOL PO (14:38)
--- NOTE | 2024-07-23 16:06 | PTCARENOTE ---
Ambulating in hallway w/o issue. VSS. Pt gave self partial bath in bathroom, new gown and socks provided. Assessment unchanged from prior.
[2024-07-23] MEDS: LANTUS 0.1 UNITS SC (16:21)
[2024-07-23] MEDS: GLUCOTROL 5 MG PO (16:58)
[2024-07-23] MEDS: GLUCOPHAGE 1000 MG PO (16:58)
[2024-07-23] MEDS: LIPITOR 80 MG PO (16:58)
[2024-07-23] MEDS: NOVOLOG FLEXPEN-LOW RESISTANCE SC (16:59)
[2024-07-23] MEDS: SENOKOT-S PO (19:59)
--- NOTE | 2024-07-23 20:10 | PTCARENOTE ---
received pt from previous rn. VSS, Pt AAOx3, ambulating NSR per tele monitor HR 80-90s, +pulses, , pox 96% on RA, lungs diminished, +bs, voids appropriately, all surgical sites intact, , PIV x1 intact, plan of care discussed and questions
encouraged.
[2024-07-23] MEDS: PACERONE 400 MG PO (21:48)
[2024-07-23 21:51] LABS: Glucose - Point of Care 167 mg/dl (70-99)
--- NOTE | 2024-07-23 23:10 | PTCARENOTE ---
Pt resting comfortably, VSS, NSR per tele monitor, assessment remains unchanged
[2024-07-24] VITALS: BP 111/62
--- NOTE | 2024-07-24 00:26 | W.PN.CT ---
Today's Communication / Plan
-
Plan:
-No major issues overnight. Hemodynamically and neurologically intact
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
-Will transition off today. Vianey added
-Telemetry phase
-Cordis d/c'd yesterday
-F/U 2-view cxr
-Noted to be a bit tachycardic with ambulation, will increase Lopressor from 12.5 mg BID to 25 mg BID
-Cont. current meds (ASA, Plavix, Lipitor, Lopressor, Amio, Protonix)
-Encourage use of IS
-OOB into chair/Ambulate
-No temporary PW to cut
-Likely home today
Assessment / Plan
-
- mv-CAD - s/p CABG x 4 (LORENE to LAD, GSV to D1, GSV to OM1, GSV to RPDA) by Dr. Smith on 07/21/24, pod #3
- Post-MIC w/ normal biventricular function w/ LVEF 55-60% w/o RWMA; no sig VHD
- HTN/HLD
- DM II with retinopathy
- CKD, 1
- LAFB preop
- Gastritis/duodenitis
- GERD, colon polyps
- R shoulder pain
- L knee surgery 1998
- Acute postop blood loss anemia - stable
- Acute postop thrombocytopenia
- Acute postop atelectasis
- Acute postop hypovolemia with subsequent hypervolemia
- Suspected acute postop pericarditis
Discussed patient care with: Cardiology, Nursing, Respiratory Therapy, Pharmacy and Care Team
Subjective
Procedure
- s/p CABG x 4 (LORENE to LAD, GSV to D1, GSV to OM1, GSV to RPDA) by Dr. Smith on 07/21/24
-
Date of Service: July 24, 2024
Pt offers no complaints, feels well. Ambulating halls without difficulty
Objective Data
-
PT 17.4 Sec (11.4-14.6) H 07/21/24 13:55
INR 1.37 07/21/24 13:55
APTT 29.2 Sec (23.4-35.0) 07/21/24 13:55
Vital Signs
Vital Signs
Temp Pulse Resp BP Pulse Ox
98.6 F 89 16 107/69 95
07/23/24 23:09 07/23/24 23:00 07/23/24 23:09 07/23/24 22:59 07/23/24 23:09
CT Intake/Output/Weight
07/23/24 07/23/24 07/24/24
06:59 18:59 06:59
Intake Total 40.6 / 458.6 782.1 / 882.1 100 / 882.1
Output Total 1300 / 2940 1570 / 1570
Balance -1259.4 / -2481.4 -787.9 / -687.9 100 / -687.9
SaO2: 95 (RA)
Physical Exam
-
General: Awake, Oriented and AOx3
Cardiovascular: Regular rate & rhythm, No Murmurs, No Rub and No Gallop
Respiratory: Decreased Breath Sounds (at bases, otherwise clear)
Sternum: Stable
Incision: Clean, Dry, Intact and Dressing Intact
Extremities: No Edema
Data Reviewed
-
Lab Results: Results Reviewed
Medications: Active Meds Reviewed
Chest X-Ray: Report Reviewed and Image Reviewed
ECG: Report Reviewed and Image Reviewed
[2024-07-24 02:54] VITALS: BP 133/77
[2024-07-24 03:04] LABS: Ionized Calcium 1.19 mMOL/L (1.15-1.33)
--- NOTE | 2024-07-24 03:07 | PTCARENOTE ---
routine labs obtained, VSS, NSR per tele monitor, pt ambulating to the bathroom no issues, assessment remains unchanged
[2024-07-24 03:37] LABS: Hematocrit 34.5 % (39.0-52.0); Hemoglobin 11.7 g/dL (13.0-18.0); Mean Corp Hgb Conc. 33.9 g/dL (33.0-37.0); Mean Corpuscular Hgb 32.2 pg (27.0-31.0); Mean Platelet Volume 9.5 fL (7.4-10.4); Platelet Count 152 10^3/uL (130-400); Red Blood Cell Count 3.63 10^6/uL (4.70-6.10); Red Cell Dist. Width 12.7 % (11.5-14.5)
[2024-07-24 03:57] LABS: Blood Urea Nitrogen 17 mg/dl (9-20); Carbon Dioxide 27 mmol/L (22-30); Chloride 99 mmol/L (98-107); Estimated Creatinine Clearance 76 ml/min; Glucose 178 mg/dl (70-99); Magnesium 2.4 mg/dl (1.6-2.3); Potassium 4.6 mmol/L (3.5-5.1); Sodium 135 mmol/L (135-145); eGFR > 60.00
[2024-07-24] MEDS: CALCIUM GLUCONATE 100 IV (04:56)
[2024-07-24] MEDS: TYLENOL 1000 MG PO (04:58)
[2024-07-24 05:14] VITALS: BMI 24.4
--- NOTE | 2024-07-24 07:07 | W.PN.INTV ---
Today's Communication / Plan
Recommendations
Pain control, incentive spirometry
Ambulating well
We will sign off. Please call with questions
Assessment
-
68-year-old male with history of multivessel coronary disease, diabetes, hypertension, hyperlipidemia, status post coronary bypass surgery, 07/21/2024
S/p CAB x4
Multivessel disease, left main disease
Postoperative anemia
LAFB
Chronic kidney disease
Hypertension/hyperlipidemia
Diabetes
GERD
Plan/recommendations
Patient appears comfortable
Off insulin drip
Chest x-ray today unremarkable. Chest tubes removed
Ambulating without difficulty
Less splinting on exam
EKG unremarkable, LAFB
MIC with normal biventricular function
Moving forward
Continue with management per CT surgery
Reviewed CT chest from 07/12/2024. Few scattered calcified granulomas noted
Noncalcified plaque noted in coronary arteries
Pain control
Out of bed to chair, incentive spirometry
Patient transferred to telemetry. We will sign off. Please call with questions
Subjective Dataa
Subjective Data
Date of Service:
Date of Service: July 24, 2024
Subjective:
Observed patient ambulating throughout the bates. He is without complaints.
Objective Data
Data Reviewed
Vital Signs / I&O / Oxygen:
Vital Signs
Temp Pulse Resp BP Pulse Ox
98.3 F 85 16 133/77 95
07/24/24 03:02 07/24/24 03:00 07/24/24 03:02 07/24/24 02:54 07/24/24 06:05
Intake and Output
07/23/24 07/24/24 07/25/24
06:59 06:59 06:59
Intake Total 458.6 / 458.6 882.1 / 882.1
Output Total 2940 / 2940 1570 / 1570
Balance -2481.4 / -2481.4 -687.9 / -687.9
SaO2 95
Nasal Cannula flow liters per 2
minute
Physical Exam
General: Comfortable
HEENT: Normocephalic and Anicteric
Cardiovascular: S1-S2 and Regular Rhythm
Respiratory: Clear, Wheeze (n), Crackles (n), Rhonchi (n) and Non-Labored Respirations
GI: Soft, Non Distended and Non Tender
Neurology: Awake, Alert and No Motor Deficits (Moves all extremities)
Skin: Good Color, Cyanosis (n) and Rash
Labs/Micro/Reports
Lab Data
07/24/24 02:58
07/24/24 02:58
--- NOTE | 2024-07-24 07:17 | W.PN.CD ---
Today's Communication / Plan
-
EKG.
Restart lisinopril 5 mg daily.
Ambulate.
Incentive spirometry.
Discharge planning.
Impression / Plan
-
Impression/Plan: 68 y/o male with HTN, HLD, NIDDM and multivessel CAD admitted for elective CABG.
#CAD
-Chronic, progressive.
-S/P 4V CABG (LEZAMA to LAD, SVG to D1, SVG to OM, SVG to RPDA) with Dr. Smith, 07/21/2024.
-Routine post operative care.
-Encourage incentive spirometry.
-Ambulate.
-Continue amiodarone, metoprolol, atorvastatin.
#Post operative pericarditis
-Acute.
-Diffuse ST elevation on EKG. Pericardial rub on exam, improved from yesterday. No obvious symptoms.
-Recheck EKG this morning.
-Consider colchicine 0.6 mg BID x 3 months and high dose aspirin taper if pericarditis becomes clinically meaningful.
#HTN
-Chronic, stable.
-Continue metoprolol.
-Restart lisinopril at lower dose (5 mg).
#HLD
-Chronic, stable.
-Continue atorvastatin 80 mg daily.
-Goal LDL < 55.
#NIDDM
-Chronic, stable.
-Continue dapagliflozin 10 mg daily while hospitalized.
-Resume empagliflozin 25 mg daily at discharge.
Subjective/Interval History:
Weight stable.
SaO2 95% on RA.
Feels well.
DATA:
Cardiac Catheterization, 06/15/2025:
CORONARY ANGIOGRAPHY
Dominance: right
LM: large vessel with a 70-80% distal stenosis.
LAD: large vessel giving rise to a large D1, moderate caliber D2, and multiple septal perforators. There is an 80-90% stenosis just after the takeoff of D1. The proximal aspect of D1 contains a 70% stenosis. There is otherwise mild disease.
LCx: large vessel giving rise to a large branching OM1 and small LPL branch. There is a 80 to 90% stenosis in the proximal circumflex just before the takeoff of OM1.
RCA: Large vessel giving rise to a large RPDA, large RPL1, and small RPL2. The proximal RCA contains a log segment of calcified moderate to severe disease up to 80-90%. There are moderate stenoses in the distal RCA. The RPDA and RPL are relatively
disease-free.
Transthoracic Echocardiogram, 06/25/2024:
CONCLUSIONS
Normal left ventricular size and systolic function.
LV ejection fraction is 55-60% .
Mild concentric left ventricular hypertrophy.
No significant valvular disease.
No prior study available for comparison.
Intraprocedural MIC, 07/21/2024:
CONCLUSIONS
Normal left ventricular size and systolic function, no regional wall motion
abnormalities seen. Stage I diastolic dysfunction.
Normal right ventricular size and function.
The aorta has atheroma less than 5 mm and minimal calcifications.
Trace MR. Trace TR.
POST OPERATIVE FINDINGS
Status post CABG x 4, the left ventricle is vigorously magdiel, no regional
wall motion abnormalities seen. EF 60 to 65%.
Normal right ventricular size and function.
Trace MR. Trace TR. No aortic valve abnormalities.
Mild left pleural effusion.
Physical Exam
Vital Signs/Labs
Vital Signs
Temp Pulse Resp BP Pulse Ox
36.8 C 85 16 133/77 95
07/24/24 03:02 07/24/24 03:00 07/24/24 03:02 07/24/24 02:54 07/24/24 06:05
07/22/24 07/23/24 07/24/24
11:59 11:59 11:59
Actual Weight 67.9 kg 66.4 kg 66.6 kg
07/24/24 02:58
07/24/24 02:58
PT 17.4 Sec (11.4-14.6) H 07/21/24 13:55
INR 1.37 07/21/24 13:55
APTT 29.2 Sec (23.4-35.0) 07/21/24 13:55
Magnesium 2.4 mg/dl (1.6-2.3) H 07/24/24 02:58
Physical Exam
Constitutional: No acute distress and Comfortable
EENT: Anicteric and Moist mucous membranes
Cardiovascular: Rhythm & rate is regular, Pedal edema is absent, JVD pressure is normal, S1S2 is normal and Rub present (Mild, improved from yesterday.)
Respiratory: Respiratory effort normal, Lungs clear to auscul., Wheeze Absent, Crackles Absent and Rhonchi Absent
GI: Soft, Distention absent, Flat, Non tender and Normal bowel sounds
Neuro/Psych: AO x 3
Data Reviewed
-
Date of Service: July 24, 2024
Medical Decision Making: Reviewed Test Results, Independent Historian Assessment and Test Interpretation
EKG: Tracing Personally Visualized and interpreted and Report Reviewed by me
Echo: Report Reviewed by me
X-Ray/CT/US/MRI/NUC/PET: Image Personally Visualized and interpreted and Report Reviewed by me
Medical Tests (PFT, Pathology etc): Report Reviewed by me
Labs: Labs Reviewed by me
Old Records: Reviewed
[2024-07-24 08:00] VITALS: BP 139/81
[2024-07-24 08:39] LABS: Glucose - Point of Care 155 mg/dl (70-99)
[2024-07-24 08:40] VITALS: BP 139/81
[2024-07-24] MEDS: VITAMIN C 1000 MG PO (08:48)
[2024-07-24] MEDS: FARXIGA 10 MG PO (08:48)
[2024-07-24] MEDS: SENOKOT-S 1 TABLET PO (08:48)
[2024-07-24] MEDS: PROTONIX 40 MG PO (08:48)
[2024-07-24] MEDS: BACTROBAN 2% OINTMENT 1 APPLIC NASAL (08:48)
[2024-07-24] MEDS: GLUCOTROL 5 MG PO (08:49)
[2024-07-24] MEDS: LOPRESSOR 25 MG PO (08:49)
[2024-07-24] MEDS: GLUCOPHAGE 1000 MG PO (08:49)
[2024-07-24] MEDS: PACERONE 200 MG PO (08:49)
[2024-07-24] MEDS: NEURONTIN 100 MG PO (08:49)
[2024-07-24] MEDS: LOW STRENGTH ASPIRIN 81 MG PO (08:49)
[2024-07-24] MEDS: PLAVIX 75 MG PO (08:49)
[2024-07-24] MEDS: LIDOCAINE 4% PATCH 1 PATCH TOPICAL (08:52)
[2024-07-24] MEDS: NOVOLOG FLEXPEN-LOW RESISTANCE 1 UNITS SC (08:53)
--- NOTE | 2024-07-24 09:29 | W.DCSUMMARY ---
Discharge Summary
Discharge Data
Date of Admission: 07/21/24
Date of Discharge: 07/24/24
-
Pending Results: No
Hospital Course
Primary care physician: Girish Alberts
Outpatient computer analyst: Emiliano Ritter
Inpatient consultants: [facility] Cardiology, diabetes nurse practitioner, pulmonary regional education coordinator
Procedures:
1. CABG
Primary Diagnosis:
1. Coronary artery disease
Secondary Diagnoses:
1. Hypertension
2. Hyperlipidemia
3. Type 2 diabetes (A1c 7.7)
4. Chronic kidney disease I
5. GERD
6. History of duodenitis
7. LAFB preop, resolved post-op
8. Acute postop blood loss anemia
9. Acute postop thrombocytopenia
10. Acute postop hypovolemia
11. acute postop pericarditis
HPI: 68-year-old male was electively admitted on 07/21/2024 for CABG due to multivessel coronary disease
Hospital course: Patient underwent CABG x 4 (LEZAMA to LAD, SVG to OM, SVG to D1, SVG to RPDA) by Dr. Troy Smith. Postprocedure MIC reported an EF of 60-65%. Patient received no intraoperative blood products and returned to CVICU on Levophed,
Precedex, and insulin. Patient weaned off Levophed overnight and was extubated on postoperative day #0. Standard aspirin and Plavix were initiated. Chest tubes, and right IJ were removed on postoperative day #2. Patient had no epicardial wires.
Patient was seen by the diabetes nurse practitioner team and transitioned to glipizide 5 mg twice daily and metformin at higher dose of 1000 mg twice daily. Jardiance was resumed. Toprol dose was increased to 25 mg twice daily to achieve heart
rate in the 70s. Lisinopril was resumed at lower dose for discharge (5 mg daily) labs are stable on day of discharge with hemoglobin 11.7 and creatinine 0.08. Patient ambulated with cardiac rehab in halls and completed steps without difficulty. A
two-view predischarge chest x-ray reported clear lung fiels without pneumothorax. Patient will be seen by the transitional nurse per standard protocol after discharge.
Home medication changes:
Stop:
Glipizide�metformin 5-500mg (2 tabs BID) as changing to glipizide 5 mg twice daily and metformin 1000 mg twice daily
Omeprazole -changing to Protonix while on Plavix
Vitamin D
Lisinopril- decreased dose from 10 mg to 5 mg daily
Discharge Plan
-
Patient Disposition: Home (Routine Discharge)
Discharge Diagnosis/Procedures: CAD s/p CABG
Condition: Good
Diet: Low Cholesterol, Low Sodium and Diabetic, Carb Controlled
Activity: No strenuous activity
Driving Restrictions: Not until seen by your Dr
Bathing Restrictions: OK to Shower
Other Services: Cardiac Rehab
Specialty Instructions: Weigh Daily- Call MD for wt gain/loss 3 lbs overnight/5 lbs in 1 week
Referrals:
CT Transitional Care Nurse [Outside]
[facility]. Cardiac Rehab [Outside] - 08/25/24 9:00 am
(Cardiac Rehab Orientation appointment is on August 25 at 9am.
The Cardiac Rehab gym is located on the first floor of the [facility].)
Girish Alberts MD [Family Provider] -
Emiliano Ritter MD [Active] - 09/07/24 2:40 pm
Troy Smith MD [Active] - 08/24/24 2:30 pm
Prescriptions:
New
acetaminophen 325 mg Tablet
650 mg PO Q4HPRN PRN (Reason: mild pain,headache,temp >101F ) Qty: 0 0RF
metformin 1,000 mg Tablet
1,000 mg PO BID@0800,1700 Qty: 60 1RF
clopidogrel 75 mg Tablet
75 mg PO DAILY Qty: 30 1RF
pantoprazole 40 mg Tablet,Delayed Release (Dr/Ec)
40 mg PO DAILY Qty: 30 1RF
glipizide 5 mg Tablet
5 mg PO BID@0800,1700 Qty: 60 1RF
metoprolol succinate [Toprol XL] 50 mg tablet extended release 24 hr
50 mg PO DAILY Qty: 30 1RF
oxycodone 5 mg Tablet
5 mg PO Q4HPRN PRN (Reason: severe pain) Qty: 10 0RF
lisinopril 5 mg tablet
5 mg PO DAILY Qty: 30 1RF
Continued
aspirin 81 mg Tablet
81 mg PO DAILY
omega-3 fatty acids Capsule
1,000 mg PO DAILY
Centrum Men 8 mg iron- 200 mcg-600 mcg Tablet
1 tab PO DAILY
Jardiance 25 mg Tablet
25 mg PO DAILY
atorvastatin 80 mg tablet
80 mg PO QPM Qty: 90 5RF
Vitamin C 1,000 mg Tablet Extended Release
1,000 mg PO DAILY Qty: 0 0RF
Discontinued
omeprazole 40 mg Capsule,Delayed Release(Dr/Ec)
40 mg PO DAILY
lisinopril 10 mg Tablet
10 mg PO DAILY
vitamin E 1,000 unit Tablet
1 tab PO DAILY
glipizide-metformin 5-500 mg Tablet
2 tab PO BID
nitroglycerin 0.4 mg tablet, sublingual
0.4 mg sublingual [id number] PRN (Reason: chest pain) Qty: 25 5RF
Discharge Orders:
Discharge Patient (As Directed); Ordered 07/24/24
Ordered By: Valeria Leon
Care Plan Goals
Care Plan Goals:
Problem: Readiness for enhanced knowledge related to diagnosis and treatment plan
Goal: Understand your diagnosis and treatment plan needs, including medications if applicable.
Instructions: Know your diagnosis, underlying causes and treatment plan options, including medications if applicable. Consult with your health care team to learn about your diagnosis and treatment plan, including medications if applicable.
Discharge Date and Time
Print Language: NEPALI
--- NOTE | 2024-07-24 09:30 | PTCARENOTE ---
Patient care assumed from nightshift RN. Patient fully alert and oriented. Denies pain. Vital signs stable. NSR. Lungs clear, slightly diminished in bilateral bases. Room air. No shortness of breath. Pulses palpable. Minimal generalized edema.
Ambulates independently. GI/ benign, tolerates meals. Glucose controlled with PO meds and sliding scale insulin. 2 view chest xray complete. Surgical dressings all clean, dry, intact.
[2024-07-24] MEDS: NSS IV (10:05)
[2024-07-24 10:11] VITALS: BP 141/78
[2024-07-24] MEDS: ZESTRIL 10 MG PO (10:18)
[2024-07-24 11:44] LABS: Glucose - Point of Care 225 mg/dl (70-99)
[2024-07-24] MEDS: NOVOLOG FLEXPEN-LOW RESISTANCE 2 UNITS SC (11:44)
[2024-07-24] MEDS: TYLENOL 650 MG PO (11:47)
--- NOTE | 2024-07-24 12:33 | PTCARENOTE ---
Patient read discharge instructions with daughter bedside. Patient showered. PIV removed. Brought down to vehicle by RN via wheelchair. Discharged at 1224.
== END 2024-07-24 12:24 | disposition home or self-care (01) | DRG 236 ==
LOC: CVICU 04:34
PROVIDERS: Anesthesiology; Clinical Nurse Specialist Acute Care; ADMITTING PHYSICIAN Thoracic Surgery (Cardiothoracic Vascular Surgery); CONSULT PHYSICIAN Internal Medicine Critical Care Medicine; OTHER PHYSICIAN Internal Medicine Cardiovascular Disease
PROC: 5A1221Z Performance of Cardiac Output, Continuous (ICD-10-PCS; 2024-07-21)
PROC: 02100ZC Bypass Coronary Artery, One Artery from Thoracic Artery, Open Approach (ICD-10-PCS; 2024-07-21)
PROC: 06BP4ZZ Excision of Right Saphenous Vein, Percutaneous Endoscopic Approach (ICD-10-PCS; 2024-07-21)
PROC: 021209W Bypass Coronary Artery, Three Arteries from Aorta with Autologous Venous Tissue, Open Approach (ICD-10-PCS; 2024-07-21)
PROC: 06BQ4ZZ Excision of Left Saphenous Vein, Percutaneous Endoscopic Approach (ICD-10-PCS; 2024-07-21)
PROC: B24BZZ4 Ultrasonography of Heart with Aorta, Transesophageal (ICD-10-PCS; 2024-07-21)
DX: I25.10 Atherosclerotic heart disease of native coronary artery without angina pectoris (principal); D62 Acute posthemorrhagic anemia; I30.8 Other forms of acute pericarditis; J98.11 Atelectasis; D69.59 Other secondary thrombocytopenia; R00.0 Tachycardia, unspecified; E87.70 Fluid overload, unspecified; E86.1 Hypovolemia; I12.9 Hypertensive chronic kidney disease with stage 1 through stage 4 chronic kidney disease, or unspecified chronic kidney disease; N18.1 Chronic kidney disease, stage 1; E78.5 Hyperlipidemia, unspecified; E11.22 Type 2 diabetes mellitus with diabetic chronic kidney disease; E11.319 Type 2 diabetes mellitus with unspecified diabetic retinopathy without macular edema; K21.9 Gastro-esophageal reflux disease without esophagitis; I44.4 Left anterior fascicular block; Z79.82 Long term (current) use of aspirin; Z79.84 Long term (current) use of oral hypoglycemic drugs
CPT/HCPCS: 36415; 71045; 71046; 80048; 80053; 81003; 81015; 82248; 82330; 82565; 82805; 82947; 82962; 83036; 83735; 84132; 84302; 84520; 85014; 85018; 85025; 85027; 85049; 85610; 85730; 86803; 86850; 86900; 86901; 86920; 87070; 93005; 93312; 93320; 93325; 93880; 94002; P9045

== ENCOUNTER 2024-08-25 09:07 | Outpatient (RCR) | payer OTHER, SELFPAY ==
[2024-08-25 10:01] LABS: Glucose - Point of Care 140 mg/dl (70-99)
[2024-08-25 10:48] LABS: Glucose - Point of Care 122 mg/dl (70-99)
== END 2024-08-25 11:43 | disposition home or self-care (01) ==
LOC: CRHB 09:07
PROVIDERS: ATTENDING PHYSICIAN Internal Medicine Cardiovascular Disease; FAMILY PHYSICIAN Internal Medicine
DX: I25.10 Atherosclerotic heart disease of native coronary artery without angina pectoris (principal); Z95.1 Presence of aortocoronary bypass graft
CPT/HCPCS: 82962; G0422